=== PATIENT | female | born 1970 | race Caucasian/White ===

== ENCOUNTER 2023-03-30 10:49 | Day surgery (SDC) | payer OTHER ==
[~2023-03-30] VITALS: Ht 149.9 cm; Wt 61.3 kg
[~2023-03-30 10:49] MED LIST: HYDR-4527 PO; SODIUM CHLORIDE 0.9% 1,000 ML ONE; TENO25TA PO
[2023-03-30] MEDS ORDERED: PROPOFOL 1% 20 ML VIAL IVP ONE (10:50)
[2023-03-30] MEDS ORDERED: GLYCOPYRROLATE 0.2 MG/ML VIAL IM ONE (10:50)
[2023-03-30] MEDS ORDERED: LIDOCAINE/PF 2% 5 ML SYRINGE IVP ONE (10:50)
[2023-03-30] MEDS ORDERED: SODIUM CHLORIDE 0.9% 1,000 ML IV ONE (11:00)
== END 2023-03-30 15:15 | disposition home or self-care (01) ==
LOC: SURGERY 10:49
PROVIDERS: ATTEND Internal Medicine Gastroenterology
DX: K57.30 Diverticulosis of large intestine without perforation or abscess without bleeding (principal); K64.8 Other hemorrhoids; K59.09 Other constipation; B18.1 Chronic viral hepatitis B without delta-agent; Z79.899 Other long term (current) drug therapy; Z98.890 Other specified postprocedural states; K21.9 Gastro-esophageal reflux disease without esophagitis
CPT/HCPCS: 45378; J2704; J3490 ×2; J7030